=== PATIENT | female | born 1955 | race Hispanic/Latino ===

== ENCOUNTER 2017-05-29 11:35 | Observation (INO) | payer OTHER ==
--- NOTE | 2017-05-29 12:17 | ED PDOC ---
Arrival/HPI - General Chief Complaint: Abdominal Pain Time Seen by Provider: 05/29/17 11:36 Historian: Patient - History of Present Illness Narrative History of Present Illness (Text): 05/29/17 12:10 A 61 year old female, whose past medical history includes chronic back pain, morbid obesity, obstructive sleep apnea, COPD, Diabetes, HTN, HLD and anxiety, presents to the emergency department with more than 1 week duration chest pain and vomiting. The patient states that her symptoms worsened today. The patient denies fevers, chills, headache, dizziness, shortness of breath, dyspnea on exertion, cough, abdominal pain, diarrhea, back pain, neck pain, urinary/bowel changes, or any other complaint. PMD: Dr. Ring Time/Duration: > week Symptom Onset: Sudden Symptom Course: Unchanged Activities at Onset: Rest, Light Context: Home Past Medical History - Provider Review Nursing Documentation Reviewed: Yes - Infectious Disease Hx of Infectious Diseases: None - Tetanus Immunization Tetanus Immunization: Unknown - Reproductive Menopause: Yes - Cardiac Hx Cardiac Disorders: Yes Hx Hypertension: Yes - Pulmonary Hx Respiratory Disorders: Yes Hx Asthma: Yes Hx Chronic Obstructive Pulmonary Disease (COPD): Yes Hx Sleep Apnea: Yes - Neurological Hx Neurological Disorder: No - HEENT Hx HEENT Disorder: Yes - Renal Hx Renal Disorder: No - Endocrine/Metabolic Hx Endocrine Disorders: Yes Hx Diabetes Mellitus Type 1: Yes Hx Hyperthyroidism: Yes (GRAVES DISEASE ) Hx Hypothyroidism: Yes (PT ON SYNTHROID) - Hematological/Oncological Hx Blood Disorders: No - Integumentary Hx Dermatological Disorder: No - Musculoskeletal/Rheumatological Hx Musculoskeletal Disorders: Yes Hx Arthritis: Yes Hx Back Pain: Yes Hx Fractures: Yes Hx Osteoarthritis: Yes Other/Comment: FRACTURE RIGHT ANKLE/ HARDWARE IN ANKLE - Gastrointestinal Hx Gastrointestinal Disorders: Yes Hx Gastritis: Yes - Genitourinary/Gynecological Hx Genitourinary Disorders: No - Psychiatric Hx Psychophysiologic Disorder: Yes Hx Anxiety: Yes Hx Depression: Yes Hx Substance Use: No - Surgical History Hx Appendectomy: Yes Hx Cholecystectomy: Yes Hx Eye Surgery: Yes Hx Orthopedic Surgery: Yes Hx Tubal Ligation: Yes - Anesthesia Hx Anesthesia: Yes Hx Anesthesia Reactions: No Hx Malignant Hyperthermia: No - Suicidal Assessment Feels Threatened In Home Enviroment: No Family/Social History - Physician Review Nursing Documentation Reviewed: Yes Family/Social History: No Known Family HX Smoking Status: Former Smoker Hx Alcohol Use: No Hx Substance Use: No Hx Substance Use Treatment: No Allergies/Home Meds Allergies/Adverse Reactions: Allergies No Known Allergies Allergy (Verified 05/29/17 11:59) Home Medications: Home Meds Medication Instructions Recorded Confirmed Albuterol HFA [Ventolin HFA 90 200 puff IH DAILY 03/09/12 05/29/17 mcg/actuation (8 g)] Tiotropium [Spiriva] 18 mcg IH DAILY 03/09/12 05/29/17 Vitamin B Complex & Vitamin C 1 tab PO DAILY 03/09/12 05/29/17 [Strovite] Atenolol [Tenormin] 50 mg PO DAILY 05/06/16 05/29/17 Diazepam [Valium] 10 mg PO QID PRN 05/06/16 05/29/17 Hydrocodone/Acetaminophen [Vicodin 1 tab PO QID PRN 05/06/16 05/29/17 Es 7.5-300 mg Tablet] Gkark-6-Qtyp Ethyl Esters 1 GM 1 gm PO DAILY 05/06/16 05/29/17 [Lovaza] Oxycodone HCl [Oxycontin] 80 mg PO QID PRN 05/06/16 05/29/17 Zolpidem [Ambien] 10 mg PO HS 05/06/16 05/29/17 Albuterol HFA [Ventolin HFA 90 1 puff IH PRN PRN 04/27/17 05/29/17 mcg/actuation (8 g)] Famotidine [Pepcid] 40 mg PO DAILY 04/27/17 05/29/17 Levothyroxine [Synthroid] 112 mcg PO DAILY 04/27/17 05/29/17 Lisinopril [Prinivil] 5 mg PO DAILY 04/27/17 05/29/17 Loratadine [Claritin] 10 mg PO DAILY 04/27/17 05/29/17 Montelukast Sodium [Singulair] 10 mg PO DAILY 04/27/17 05/29/17 Pantoprazole Sodium [Protonix] 40 mg PO DAILY 04/27/17 05/29/17 Repaglinide [Prandin] 0.5 mg PO DAILY 04/27/17 05/29/17 Simvastatin [Zocor] 40 mg PO DAILY 04/27/17 05/29/17 Gabapentin [Neurontin] 300 mg PO TID 05/29/17 05/29/17 Review of Systems - Physician Review All systems were reviewed & negative as marked: Yes - Review of Systems Constitutional: absent: Fevers, Night Sweats ENT: absent: Sore Throat Respiratory: absent: SOB, Cough Cardiovascular: Chest Pain. absent: JEFFERY, Syncope Gastrointestinal: Vomiting. absent: Abdominal Pain, Stool Changes Genitourinary Female: absent: Urine Output Changes Musculoskeletal: absent: Neck Pain Neurological: absent: Headache Physical Exam Vital Signs Reviewed: Yes Vital Signs Temp Pulse Resp BP Pulse Ox 05/29/17 11:47 97.8 F 68 18 125/65 98 Temperature: Afebrile Blood Pressure: Normal Pulse: Regular Respiratory Rate: Normal Appearance: Positive for: Well-Appearing, Non-Toxic, Comfortable Pain Distress: None Mental Status: Positive for: Alert and Oriented X 3 - Systems Exam Head: Present: Atraumatic, Normocephalic Pupils: Present: PERRL Extroacular Muscles: Present: EOMI Conjunctiva: Present: Normal Mouth: Present: Moist Mucous Membranes Neck: Present: Normal Range of Motion Respiratory/Chest: Present: Clear to Auscultation, Good Air Exchange. No: Respiratory Distress, Accessory Muscle Use Cardiovascular: Present: Regular Rate and Rhythm, Normal S1, S2. No: Murmurs Abdomen: Present: Normal Bowel Sounds. No: Tenderness, Distention, Peritoneal Signs Back: Present: Normal Inspection Upper Extremity: Present: Normal Inspection. No: Cyanosis, Edema Lower Extremity: Present: Normal Inspection. No: Edema Neurological: Present: GCS=15, CN II-XII Intact, Speech Normal Skin: Present: Warm, Dry, Normal Color. No: Rashes Psychiatric: Present: Alert, Oriented x 3, Normal Insight, Normal Concentration Medical Decision Making ED Course and Treatment: 05/29/17 12:22 Impression: A 61 year old female presents to the emergency department with over a week duration chest pain and vomiting which worsened today. Plan: -- EKG -- Chest X-ray -- Labs -- Urinalysis -- Protonix -- Reassess and disposition Prior Visits: Notes and results from previous visits were reviewed. Patient was last seen in the emergency department on 04/08/2016. The patient was seen in the emergency department for left flank pain. Patient was discharged home and advised to follow up with her PMD. Progress Notes: EKG: Ordered, reviewed, and independently interpreted the EKG. Rate : 60 BPM Rhythm : NSR Interpretation : No ST- T wave changes. CHEST X-RAY Dictator : Keyla Mcdonald MD Report Date : 05/29/2017 12:54:40 IMPRESSION: Cardiomegaly. 05/29/17 15:[address] ring. requests admission with dr mcclain on consult. - Lab Interpretations Lab Results: 05/29/17 11:52 05/29/17 11:52 Lab Results 05/29/17 11:52: Sodium 140, Potassium 5.4 H, Chloride 102, Carbon Dioxide 28, Anion Gap 15, BUN 27 H, Creatinine 1.1, Est GFR ( Amer) > 60, Est GFR ( Non-Af Amer) 50, Random Glucose 104, Calcium 9.5, Magnesium 1.6 L, Total Bilirubin 0.7, AST 25, ALT 31, Alkaline Phosphatase 66, Lactate Dehydrogenase 538, Total Creatine Kinase 72, Troponin I < 0.01, Total Protein 8.1, Albumin 4.7 , Globulin 3.4, Albumin/Globulin Ratio 1.4, Lipase 81 05/29/17 11:52: PT 10.6, INR 0.96, APTT 30.7 05/29/17 11:52: WBC 7.4 D, RBC 4.57, Hgb 12.9, Hct 39.0, MCV 85.3, MCH 28.2, MCHC 33.1, RDW 13.5, Plt Count 283, MPV 10.1, Gran % 60.6, Lymph % (Auto) 29.8, [place] % (Auto) 6.9 H, Eos % (Auto) 2.2, Baso % (Auto) 0.5, Gran # 4.46, Lymph # 2.2, [place] # 0.5, Eos # 0.2, Baso # 0.04 I have reviewed the lab results: Yes - RAD Interpretation Radiology Orders: 05/29/17 12:04 CHEST PORTABLE [RAD] Stat - EKG Interpretation Interpreted by ED Physician: Yes Type: 12 lead EKG - Medication Orders Current Medication Orders: Discontinued Medications Aspirin (Aspirin) 325 mg PO STAT STA Stop: 05/29/17 14:17 Last Admin: 05/29/17 14:40 Dose: 325 mg Pantoprazole Sodium (Protonix Inj) 40 mg IVP STAT STA Stop: 05/29/17 12:06 Last Admin: 05/29/17 12:29 Dose: 40 mg IVP Administration Document 05/29/17 12:29 IT (Rec: 05/29/17 12:29 IT [id number]) Charges for Administration # of IVP Administrations 1 - Scribe Statement The provider has reviewed the documentation as recorded by the [place] Kenna Montero Provider Scribe Attestation: All medical record entries made by the Scribe were at my direction and personally dictated by me. I have reviewed the chart and agree that the record accurately reflects my personal performance of the history, physical exam, medical decision making, and the department course for this patient. I have also personally directed, reviewed, and agree with the discharge instructions and disposition. Disposition/Present on Arrival - Present on Arrival Any Indicators Present on Arrival: No History of DVT/PE: No History of Uncontrolled Diabetes: Yes Urinary Catheter: No History of Decub. Ulcer: No History Surgical Site Infection Following: None - Disposition Have Diagnosis and Disposition been Completed?: Yes Diagnosis: Chest pain Disposition: HOSPITALIZED Disposition Time: 15:34 Condition: STABLE
[2017-05-29 12:32] LABS: BASO # 0.04 K/mm3 (0.0-2.0); BASO % 0.5 % (0.0-3.0); EOS # 0.2 (0.0-0.7); EOS % 2.2 % (1.5-5.0); GRAN # 4.46 (1.4-6.5); GRAN % 60.6 % (50.0-68.0); LYMPH # 2.2 (1.2-3.4); LYMPH % 29.8 % (22.0-35.0); MEAN CELL VOLUME 85.3 fl (80.0-105.0); MEAN CORPUSCULAR HEMOGLOBIN 28.2 pg (25.0-35.0); MEAN CORPUSCULAR HGB CONC 33.1 g/dl (31.0-37.0); MEAN PLATELET VOLUME 10.1 fl (7.0-11.0); MONO # 0.5 (0.1-0.6); MONO % 6.9 % (1.0-6.0); RED CELL DISTRIBUTION WIDTH 13.5 % (11.5-14.5); WHITE BLOOD COUNT 7.4 10^3/ul (4.5-11.0)
[2017-05-29 12:38] LABS: ALB/GLOB RATIO 1.4 (1.1-1.8); ALKALINE PHOSPHATASE 66 U/L (38-126); ALT/SGPT 31 U/L (7-56); AST/SGOT 25 U/L (14-36); BILIRUBIN,TOTAL 0.7 mg/dL (0.2-1.3); BLOOD UREA NITROGEN 27 mg/dL (7-21); CALCIUM 9.5 mg/dL (8.4-10.5); CARBON DIOXIDE 28 mmol/L (21-33); CHLORIDE 102 mmol/L (98-107); GFR AFRICAN-AMERICAN > 60; GLUCOSE,RANDOM 104 mg/dL (70-110); LIPASE 81 U/L (23-300); MAGNESIUM 1.6 mg/dL (1.7-2.2); POTASSIUM 5.4 mmol/L (3.6-5.0); SODIUM 140 mmol/L (132-148); TOTAL PROTEIN 8.1 g/dL (5.8-8.3)
[2017-05-29 12:42] LABS: INR 0.96 (0.93-1.08); PARTIAL THROMBOPLASTIN TIME 30.7 Seconds (25.1-36.5)
[2017-05-29 12:53] LABS: TROPONIN I < 0.01 ng/mL
--- NOTE | 2017-05-29 12:56 | RAD ---
HISTORY: cp/abd pain COMPARISON: Chest x-ray performed 05/03/16 TECHNIQUE: Chest, one view. FINDINGS: Examination limited by habitus. LUNGS: No focal consolidation. Please note that chest x-ray has limited sensitivity for the detection of pulmonary masses. PLEURA: No significant pleural effusion identified. No definite pneumothorax . CARDIOVASCULAR: Cardiomegaly. OSSEOUS STRUCTURES: Degenerative changes of the spine. VISUALIZED UPPER ABDOMEN: Unremarkable. OTHER FINDINGS: None. IMPRESSION: Cardiomegaly.
[2017-05-29 15:49] LABS: URINE BILIRUBIN NEGATIVE (NEGATIVE); URINE BLOOD NEGATIVE (NEGATIVE); URINE GLUCOSE (UA) NEGATIVE (NEGATIVE); URINE KETONE NEGATIVE (NEGATIVE); URINE LEUKOCYTE ESTERASE MODERATE Leu/uL (NEGATIVE); URINE PROTEIN NEGATIVE mg/dL (<30 mg/dL); URINE UROBILINOGEN 0.2 E.U./dL (<1 E.U./dL)
[2017-05-29 15:50] LABS: URINE COLOR LIGHT YELLOW (YELLOW)
[2017-05-29 16:24] LABS: URINE BACTERIA FEW (NEG); URINE EPITHELIAL CELLS 0 - 2 /hpf (0-5); URINE RBC NEGATIVE /hpf (0-2)
[2017-05-29 16:25] LABS: URINE APPEARANCE CLEAR (CLEAR)
[2017-05-29] MEDS: Insulin Reg-LOW-Coverage SC SCH ×2 (17:59→23:04)
[2017-05-29] MEDS ORDERED: DIAZEPAM 10 MG PO PRN (18:00)
[2017-05-29] MEDS ORDERED: HYDROCODONE PO PRN (18:01)
[2017-05-29] MEDS ORDERED: [UNRECOGNIZED DRUG - OTHER] PO PRN (18:01)
[2017-05-29] MEDS ORDERED: ACETAMINOPHEN PO PRN (18:01)
[2017-05-29] MEDS: Enoxaparin 40 mg Syringe SC SCH (18:08)
[2017-05-29 18:34] VITALS: BMI 39.6
[2017-05-29] MEDS ORDERED: Pneumococcal 23-Valent Vaccine IM ONE (18:46)
[2017-05-29] MEDS ORDERED: Influenza Vaccine 60 mcg/0.5 mL SYR (4YR UP) IM ONE (18:46)
[2017-05-29] MEDS: Albuterol-Ipratrop 3 mg / 0.5 (3 ml) UD IH SCH (19:05)
[2017-05-29 19:19] LABS: TROPONIN I < 0.01 ng/mL
[2017-05-29] MEDS: oxyCODONE 80 mg ER Tab (oxyCONTIN) PO SCH (21:21)
[2017-05-29] MEDS ORDERED: Albuterol-Ipratrop 3 mg / 0.5 (3 ml) UD IH PRN (22:00)
[2017-05-30 07:11] LABS: ALB/GLOB RATIO 1.3 (1.1-1.8); ALKALINE PHOSPHATASE 52 U/L (38-126); ALT/SGPT 22 U/L (7-56); AST/SGOT 21 U/L (14-36); BILIRUBIN,TOTAL 0.6 mg/dL (0.2-1.3); BLOOD UREA NITROGEN 27 mg/dL (7-21); CALCIUM 9.3 mg/dL (8.4-10.5); CARBON DIOXIDE 24 mmol/L (21-33); CHLORIDE 107 mmol/L (98-107); CHOLESTEROL 122 mg/dL (130-200); GFR AFRICAN-AMERICAN > 60; GLUCOSE,RANDOM 105 mg/dL (70-110); MAGNESIUM 1.7 mg/dL (1.7-2.2); PHOSPHOROUS 4.9 mg/dL (2.5-4.5); POTASSIUM 4.8 mmol/L (3.6-5.0); SODIUM 140 mmol/L (132-148); TOTAL PROTEIN 6.9 g/dL (5.8-8.3)
[2017-05-30 07:12] LABS: BASO # 0.03 K/mm3 (0.0-2.0); BASO % 0.5 % (0.0-3.0); EOS # 0.2 (0.0-0.7); EOS % 3.1 % (1.5-5.0); GRAN # 2.53 (1.4-6.5); GRAN % 45.7 % (50.0-68.0); HEMATOCRIT 34.6 % (36.0-48.0); LYMPH # 2.3 (1.2-3.4); LYMPH % 41.3 % (22.0-35.0); MEAN CORPUSCULAR HEMOGLOBIN 27.8 pg (25.0-35.0); MEAN CORPUSCULAR HGB CONC 32.7 g/dl (31.0-37.0); MEAN PLATELET VOLUME 10.3 fl (7.0-11.0); MONO # 0.5 (0.1-0.6); MONO % 9.4 % (1.0-6.0); RED CELL DISTRIBUTION WIDTH 13.4 % (11.5-14.5); WHITE BLOOD COUNT 5.5 10^3/ul (4.5-11.0)
[2017-05-30 07:25] LABS: TROPONIN I < 0.01 ng/mL
[2017-05-30] MEDS: Albuterol-Ipratrop 3 mg / 0.5 (3 ml) UD IH SCH ×2 (08:00→21:40)
[2017-05-30] MEDS: Insulin Reg-LOW-Coverage SC SCH ×3 (08:57→17:39)
[2017-05-30] MEDS: oxyCODONE 80 mg ER Tab (oxyCONTIN) PO SCH ×4 (09:08→22:35)
[2017-05-30] MEDS: Omega-3-Acid Ethyl Esters 1 GM Cap PO SCH (09:09)
[2017-05-30] MEDS: Levothyroxine 112 MCG TAB PO SCH (09:09)
[2017-05-30] MEDS: Enoxaparin 40 mg Syringe SC SCH (09:10)
[2017-05-30] MEDS: Pantoprazole 40 mg EC Tab PO SCH (09:10)
[2017-05-30] MEDS ORDERED: Non Formulary Medication (Simvastatin [Zocor] 40 MG) PO SCH (10:00)
--- NOTE | 2017-05-30 10:14 | CARD ---
APPROVED REPORT EKG Measurement Heart [id number] <Conclusion> Normal sinus rhythm Left axis deviation Abnormal ECG
--- NOTE | 2017-05-30 11:46 | CARD ---
APPROVED REPORT EXAM: Two-dimensional and M-mode echocardiogram with Doppler and color Doppler. INDICATION Chest Pain LVFX 2D DIMENSIONS Left Atrium (2D)4.2 (1.6-4.0cm)IVSd1.2 (0.7-1.1cm) LVDd4.4 (3.9-5.9cm)PWd1.3 (0.7-1.1cm) LVDs2.9 (2.5-4.0cm)FS (%) 35.6 % LVEF (%)65.3 (>50%) M-Mode DIMENSIONS Aortic Root3.10 (2.2-3.7cm)Aortic Cusp Exc.2.30 (1.5-2.0cm) Aortic Valve AoV Peak Qfmymeow934.0cm/Katy Peak GR.13mmHg Mitral Valve MV E Ypubclph78.4cm/sMV A Wskrnncg46.8cm/sE/A ratio0.9 TDI Lateral E' Peak V11.60cm/sMedial E' Peak V7.70cm/sE/Lateral E'7.6 E/Medial E'11.5 Pulmonary Valve PV Peak Zokvbdyw08.3cm/sPV Peak Grad.4mmHg Tricuspid Valve TR Peak Icfadzyi961gt/sRAP [id number] Peak Gr.11mmHg [id number] LEFT VENTRICLE The left ventricle is normal size. There is borderline to mild concentric left ventricular hypertrophy. The left ventricular function is normal.EF-65% There is normal LV segmental wall motion. Transmitral Doppler flow pattern is Grade III-reversible restrictive diastolic dysfunction. No left ventricle thrombus noted on this study. There is no ventricular septal defect visualized. There is no left ventricular aneurysm. There is no mass noted in the left ventricle. RIGHT VENTRICLE The right ventricle is normal size. There is normal right ventricular wall thickness. The right ventricular systolic function is normal. ATRIA The left atrium is mildly dilated. The right atrium size is normal. The interatrial septum is intact with no evidence for an atrial septal defect. AORTIC VALVE The aortic valve is thickened but opens well. The aortic valve is mildly sclerotic. There is trace aortic regurgitation. There is no aortic valvular stenosis. There is no aortic valvular vegetation. MITRAL VALVE The mitral valve is thickened but opens well. Mitral regurgitation is trace. There is no mitral valve stenosis. There is no evidence of mitral valve prolapse. TRICUSPID VALVE The tricuspid valve leaflets are thickened , but open well. There is trace tricuspid regurgitation.RVSP-21 mm of Hg. There is no tricuspid valve stenosis. There is no tricuspid valve prolapse or vegetation. PULMONIC VALVE The pulmonic valve is borderline thickened. There is trace pulmonic valvular regurgitation. There is no pulmonic valvular stenosis. GREAT VESSELS The aortic root is normal in size. The ascending aorta is normal in size. The pulmonary artery is normal. The IVC is normal in size and collapses >50% with inspiration. PERICARDIAL EFFUSION There is no pleural effusion. There is no pericardial effusion. <Conclusion> The left ventricle is normal size. There is borderline to mild concentric left ventricular hypertrophy. The left ventricular function is normal.EF-65% There is trace aortic regurgitation. Mitral regurgitation is trace. There is trace tricuspid regurgitation.RVSP-21 mm of Hg. There is no pericardial effusion.
--- NOTE | 2017-05-30 13:31 | PN ---
DATE: 05/30/2017 REASON FOR CONSULTATION: Chest pain, cardiac evaluation, history of back pain, narcotic abuse. SUBJECTIVE: The patient denies any chest pain, shortness of breath, or any palpitation, having echo at bedside. PHYSICAL EXAMINATION GENERAL: Not in apparent distress. Family is at bedside. VITAL SIGNS: Temperature afebrile, heart rate 64, blood pressure 124/60. HEENT: PERRLA. Extraocular muscles are intact. NECK: Supple. No carotid bruit or thyromegaly. CHEST: Clear to auscultation. HEART: S1 and S2 regular. ABDOMEN: Soft. EXTREMITIES: Clubbing and cyanosis negative. LABORATORY DATA: WBC 5.5, hemoglobin 11.7, hematocrit 34.6, platelet count 217. Chemistry shows sodium 140, potassium 4.0, chloride 107, carbon dioxide 24, anion gap of 14, BUN 27, creatinine 1.1. TSH is 0.36. Triglyceride 216, cholesterol 122, LDL 54, HDL 42. IMPRESSION: Chest pain, atypical. No evidence of acute myocardial infarction. No evidence of acute coronary syndrome, diabetes, hypertension, hyperlipidemia, morbid obesity, narcotic abuse. RECOMMENDATIONS: We will get echo today. Consider stress test as outpatient because of multiple risk factors for coronary artery disease. We will discontinue telemetry. Patient remains stable due to stress test Thursday or otherwise as outpatient. Thank you Dr. Ortiz for providing us the opportunity in taking care of the patient. Jignesh Hamlin MD
[2017-05-30] MEDS: Lidocaine 5% Patch TD SCH (23:06)
[2017-05-31 05:15] VITALS: RESP 20
[2017-05-31] MEDS ORDERED: Oxycodone/Acetaminophen 5/325 mg Tab PO STA (07:11)
[2017-05-31] MEDS: Albuterol-Ipratrop 3 mg / 0.5 (3 ml) UD IH SCH ×2 (07:43→11:08)
[2017-05-31] MEDS: Insulin Reg-LOW-Coverage SC SCH (08:17)
[2017-05-31 08:23] VITALS: TEMP 98; O2SAT 99
[2017-05-31] MEDS: Pantoprazole 40 mg EC Tab PO SCH (09:45)
[2017-05-31] MEDS: Omega-3-Acid Ethyl Esters 1 GM Cap PO SCH (09:45)
[2017-05-31] MEDS: Levothyroxine 112 MCG TAB PO SCH (09:46)
[2017-05-31] MEDS: oxyCODONE 80 mg ER Tab (oxyCONTIN) PO SCH (09:46)
[2017-05-31 09:52] VITALS: BP 118/54; PULSE 75
[2017-05-31] MEDS: Lidocaine 5% Patch TD SCH (09:52)
[2017-05-31] MEDS: Enoxaparin 40 mg Syringe SC SCH (09:53)
--- NOTE | 2017-05-31 16:38 | PN ---
DATE: 05/31/2017 REASON FOR CONSULTATION AND FOLLOWUP: Chest pain, cardiac evaluation, history of back pain, narcotic abuse. SUBJECTIVE: The patient denies any chest pain, shortness of breath, or any palpitation, so far no evidence of acute MA. OBJECTIVE: Sitting at the bedside comfortable, not in apparent distress. PHYSICAL EXAMINATION: VITAL SIGNS: Temperature afebrile, heart rate 75, blood pressure 118/54. HEENT: PERRLA intact. NECK: Supple. No carotid bruit or thyromegaly. CHEST: Clear to auscultation. HEART: S1 and S2 regular. ABDOMEN: Soft. EXTREMITIES: Clubbing and cyanosis negative. LABORATORY DATA: Blood workup as follows: WBC 5.5, hemoglobin 11.3, hematocrit 34.6, platelet count 217. Chemistry shows sodium 140, potassium 4.0, chloride 107, carbon dioxide 24, anion gap of 14, BUN 27, creatinine 1.1. Triglyceride 215, cholesterol 122, LDL 54, HDL 42. TSH is 1.36. IMPRESSION: Chest pain, atypical, so far no evidence of acute myocardial infarction. The patient had echocardiography done yesterday that showed ejection fraction 65%, trace aortic regurgitation, trace mitral regurgitation, trace tricuspid regurgitation, RV systolic pressure of 27; no evidence of acute myocardial infarction; history of narcotic abuse; history of back pain. RECOMMENDATIONS: Continue current medication. Continue DVT prophylaxis. We will do stress test as outpatient. Discussed with the patient. We will schedule stress test as outpatient because of multiple risk factors for coronary artery disease. Thank you for providing us the opportunity in taking care of the patient. Jignesh Hamlin MD
--- NOTE | 2017-06-01 01:39 | PN ---
DATE: 05/30/2017 SUBJECTIVE: Hui Whalen is a 61-year-old female, admitted to telemetry. The patient seems better, feels better, less short of breath. No chest pain. She is comfortable and her blood work came back normal. She is afebrile. She has no other complaints. No cough. No nausea. No vomiting. No cardiac arrhythmia. No palpitations. PHYSICAL EXAMINATION: VITAL SIGNS: As follows: Temperature 97.8, heart rate 72, blood pressure 112/53, and respirations 18. HEAD AND NECK: Normal. No JVD. No thyromegaly. CHEST: Clear. Good air entry. CARDIAC: First sound and second sound normal. ABDOMEN: Soft, obese, and nontender. EXTREMITIES: No edema. NEUROLOGIC: Normal. LABORATORY DATA: As follows: White count 5.5, hemoglobin 11.3, hematocrit 34.6, and platelets 217. Chemistry noted for blood sugar of 102, sodium 140, potassium 4.8, chloride 107, bicarb 24, BUN 27, and creatinine 1.1. Liver function test is normal. Her troponin x3 was negative. The patient also noted for LDL 54, which is very well controlled cholesterol. Triglyceride was elevated at 216. IMPRESSION AND PLAN: 1. Chest pain, atypical. Cardiac enzymes x2 is negative and repeat one more and she would be discharged if it is negative. She will be discharged home tomorrow. Reschedule a stress test as an outpatient. Follow up with Cardiology, Dr. Hamlin. 2. Hypertension. 3. Morbid obesity. 4. Obstructive sleep apnea. 5. Diabetes. 6. Hypercholesteremia. Continue current medicines and follow up clinically. 7. Chronic back pain. Continue OxyContin. Continue Vicodin. Continue Valium for now. Follow up clinically. The patient is using BiPAP machine, tolerated very well and we will continue current therapy. If she is stable and cardiac enzymes are negative, we will discharge the patient in the morning. Roel Ortiz MD
--- NOTE | 2017-06-01 08:20 | HP ---
REASON FOR ADMISSION: Chest pain. HISTORY OF PRESENT ILLNESS: A 61-year-old female with history diabetes, hypertension, high cholesterol, chronic back pain, depression, anxiety, chronic osteoarthritis, came in with chest pain, heaviness in the chest associated with shortness of breath. This has been intermittently; however, on that day it stayed like more than half an hour, came to the ER and the pain seems resolved. She does associate with the pain nausea, she felt little bit sweaty. There was no other complaints. She does have a history of COPD, but there was no wheezing with that and no other . No fever. No chills. No vomiting. PAST MEDICAL HISTORY: As I mentioned before, hypertension, diabetes, hyperthyroidism, exophthalmos from hyperthyroidism, COPD, high cholesterol, diverticulosis, and diabetes type 2 using medications, and chronic osteoarthritis, back pain, knee arthritis. ALLERGIES: NO KNOWN ALLERGIES. FAMILY HISTORY: Noncontributory. SOCIAL HISTORY: She does not smoke or drink. She lives with her daughter. REVIEW OF SYSTEMS: As I mentioned, back pain, knee pain, incontinent, shortness of breath, wheezing sometimes, anxiety, insomnia. HOME MEDICATIONS: The patient takes a lot of medication. She takes Protonix 40 mg, Ambien 10, Prandin 0.5 mg t.i.d., vitamin C, Zocor 40. She takes omega-3, prednisone 5 mg, Pepcid 40 mg, Tenormin 50 mg, levothyroxine 112 mcg, Vicodin 7.5/300 mg, albuterol nebulizers, Spiriva, OxyContin 80 mg 4 times a day, Claritin 10 mg daily, Neurontin 300 mg p.o. t.i.d., and Valium 10 mg 4 times a day. PHYSICAL EXAMINATION: GENERAL: Since she came in, the patient seen on the floor, she is comfortable. She has no distress. VITAL SIGNS: Temperature 98, heart rate 62, blood pressure 128/65, respirations 19, saturation 99% and FiO2 30%. The patient also refused BiPAP at night HEAD/NECK: Normal except for exophthalmos both eyes. CHEST: Clear. Good air entry. CARDIAC: First sound and second sound is normal. ABDOMEN: Soft, obese, and nontender. EXTREMITIES: No edema. NEUROLOGIC: Exam is normal. LABORATORY DATA: White count 7.4, hemoglobin 12.9, hematocrit 39, platelets 283. Chemistry was noted for sodium 140, potassium 5.4, chloride 102, bicarb 28, BUN 27, creatinine 1.1. Liver function test is normal. Magnesium is low at 1.6. She also has troponin x2 and it was negative. The patient also had an EKG and chest x-ray, which was done on admission. Chest x-ray was read as no focal consolidation on the chest. No pleural effusions. No pneumothorax. Also EKG was done while she came in and was reported by ER as no significant ST elevations. No evidence of myocardial infarctions. No atrial fibrillations. IMPRESSION AND PLAN: 1. A 61-year-old female with multiple risk factors, diabetes, hypertension, high cholesterol, obesity, on multiple medications. She came in also with obstructive sleep apnea, on multiple medications, came in with chest heaviness for half an hour or more. The patient will be admitted to Telemetry, cardiac monitoring, cardiac enzymes x3, Cardiology evaluation and consultation and continue oral medications, baby aspirin and we will follow up clinically. 2. Chronic back pain. 3. Chronic obstructive pulmonary disease. 4. Hypertension. 5.. Hypercholesterolemia. We will resume her medications. 6. Obstructive sleep apnea, with BiPAP machine. 7. Deep venous thrombosis prophylaxis, Lovenox. 8. Gastroenterology prophylaxis, Protonix. Continue current therapy. Roel Ortiz MD
--- NOTE | 2017-06-01 08:45 | PN ---
DATE: 05/29/2017 REASON FOR CONSULTATION AND FOLLOWUP: Cardiac evaluation, chest pain, possible OxyContin withdrawal. BRIEF CLINICAL HISTORY: A 61-year-old female with past medical history significant for morbid obesity, chronic back pain, OxyContin, obstructive sleep apnea, COPD, diabetes, hypertension, hyperlipidemia, anxiety disorder, came to the emergency room one week duration, complained of pain, vomiting because the patient threw by mistake OxyContin, she was taking 90 mg 3 times a day, but she threw it to the thrash, and did not get adequate supplement, so the patient has withdrawal, so came in here. Also, complained of epigastric pain, so came to the emergency room and got admitted for rule out PA. The patient denies any chest pain. Daughter is at the bedside. PAST MEDICAL HISTORY: Significant for chronic back pain, obesity, COPD, diabetes, hypertension, hyperlipidemia and anxiety disorder. SOCIAL HISTORY: She quit smoking 4 years ago. She denies any history of alcohol abuse. CURRENT MEDICATIONS: The patient at home was taking Protonix, Ambien, Prandin, B complex, Zocor, Prinivil, Pepcid, atenolol, levothyroxine, hydrocortisone, Vicodin, DuoNeb nebulizer treatment, Spiriva, OxyContin 90 mg 3 times a day, Singulair, loratadine, gabapentin, Cardizem, diazepam, and Valium. ALLERGIES: NO KNOWN DRUG ALLERGIES. REVIEW OF SYSTEMS: As per HPI. PHYSICAL EXAMINATION: As follows: VITAL SIGNS: Height of the patient is 5 feet 6 inches and weight of the patient is 251 pounds, body mass index 40 kg/m2. HEENT: , rule out hypothyroidism or goiter. NECK: Supple. No carotid bruits or thyromegaly. CHEST: Clear to auscultation. HEART: S1 and S2 regular. ABDOMEN: Soft. Epigastric tenderness. EXTREMITIES: Clubbing and cyanosis, negative. LABORATORY DATA: EKG shows normal sinus rhythm,left axis deviation with acute ST-T changes noted. WBC 7.1, hemoglobin 12.9, hematocrit 39.0, platelet count 283. Chemistries shows sodium 140, potassium 5.4, chloride 102, carbon dioxide 28, anion gap of 15, BUN 27, creatinine 1.1, troponin 0.01, negative. IMPRESSION: Atypical chest pain. Given the multiple risk factors for coronary artery disease, suggest to rule out myocardial infarction, possibly most likely these symptoms are secondary to OxyContin withdrawal that the patient lost medication. History of hypothyroid, history of hypertension, hyperlipidemia. Recommend to follow up CPK, troponin, supplement magnesium. The patient has hypomagnesemia, serial CPK, troponin, echo to assess left ventricular function, lipid profile, TSH. If negative, possible discharge home tomorrow and schedule her stress test as outpatient. We will get a stat lipid profile, TSH, hemoglobin A1c in the morning as well as echo to assess LV function. Thank you , for providing us the opportunity in taking care of patient, Hui Whalen. Jignesh Hamlin MD cc:
--- NOTE | 2017-06-01 13:10 | DS ---
HISTORY OF PRESENT ILLNESS: The patient is a 61-year-old female with multiple risk factors including diabetes, hypertension, hypercholesterolemia, morbid obesity, obstructive sleep apnea, hypertriglyceridemia, chronic back pain, chronic osteoarthritis. The patient came into the hospital with chest pain, atypical. Her cardiac enzyme x3 were negative. The patient was seen by Cardiology. Echocardiogram shows good LV functions. EKG shows no ST elevation sinus rhythm. The patient was evaluated, was stable hemodynamically. Labs were negative and was in normal range and was discharged to be followed as outpatient. PHYSICAL EXAMINATION: VITAL SIGNS: Stable, temperature 98, heart rate 67, blood pressure 116/47, respirations 20, sat 98%. HEAD AND NECK: Normal. No JVD. CHEST: Clear. CARDIAC: Normal. ABDOMEN: Obese. EXTREMITIES: No edema. DISCHARGE DIAGNOSES: 1. Chest pain atypical. The patient will be scheduled for stress test as outpatient. 2. Morbid obesity. 3. Hypertension. 4. Diabetes. 5. Obstructive sleep apnea. 6. Hypercholesterolemia. 7. Chronic back pain. 8. Chronic anxiety. 9. Hyperthyroidism treated with thyroidectomy and radioactive iodine, currently on levothyroxine. 10. Morbid obesity. 11. Chronic osteoarthritis. 12. Chronic back pain. PLAN: The patient will be discharged home to follow up in the office within a week. Roel Ortiz MD
== END 2017-05-31 11:35 | disposition home or self-care (01) ==
LOC: ED 11:35 → INTOOBSV 14:13 → ERH 14:13 → 2RNO 16:27 → 5RSO 05-30 16:33
PROVIDERS: ADMIT Internal Medicine; ATTEND Internal Medicine
DX: R07.89 Other chest pain (principal); I11.9 Hypertensive heart disease without heart failure; J44.9 Chronic obstructive pulmonary disease, unspecified; E11.9 Type 2 diabetes mellitus without complications; G89.29 Other chronic pain; G47.33 Obstructive sleep apnea (adult) (pediatric); F41.9 Anxiety disorder, unspecified; E66.01 Morbid (severe) obesity due to excess calories; M54.9 Dorsalgia, unspecified; E78.00 Pure hypercholesterolemia, unspecified; R11.2 Nausea with vomiting, unspecified; E05.90 Thyrotoxicosis, unspecified without thyrotoxic crisis or storm; E83.42 Hypomagnesemia; M17.10 Unilateral primary osteoarthritis, unspecified knee; E78.1 Pure hyperglyceridemia; Z87.891 Personal history of nicotine dependence
CPT/HCPCS: 36415; 71010; 80053; 80061; 81001; 82550; 82948; 83036; 83615; 83690; 83735; 84100; 84443; 84484; 85025; 85610; 85730; 87086; 93005; 93306; 94640; 94660; 96374; 99285; C9113; G0378; J1650

== ENCOUNTER 2017-08-31 19:37 | Observation (INO) | payer OTHER ==
[2017-08-31] MEDS ORDERED: Sodium Chloride 0.9% 1,000 ML IV STA (20:53)
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
[2017-08-31 22:56] LABS: VENOUS BLOOD GAS BASE EXCESS -1.9 mmol/L (0.0-2.0); VENOUS BLOOD GAS PO2 38 mm/Hg (30-55); VENOUS BLOOD PH 7.21 (7.32-7.43)
[2017-08-31 23:12] LABS: BASO # 0.04 K/mm3 (0.0-2.0); BASO % 0.5 % (0.0-3.0); EOS # 0.2 (0.0-0.7); GRAN # 5.36 (1.4-6.5); HEMOGLOBIN 11.9 g/dL (12.0-16.0); MEAN CELL VOLUME 85.8 fl (80.0-105.0); MEAN CORPUSCULAR HEMOGLOBIN 27.7 pg (25.0-35.0); MEAN CORPUSCULAR HGB CONC 32.3 g/dl (31.0-37.0); MEAN PLATELET VOLUME 10.2 fl (7.0-11.0); MONO # 0.4 (0.1-0.6); MONO % 5.5 % (1.0-6.0); RBC 4.29 10^6/uL (3.5-6.1); RED CELL DISTRIBUTION WIDTH 13.8 % (11.5-14.5)
[2017-08-31] MEDS ORDERED: cefTRIAXone (Rocephin) 1 gm Inj IVPB STA (23:14)
[2017-08-31] MEDS ORDERED: Azithromycin 500MG/NS 250ml 500 MG/250 ML BAG IVPB STA (23:14)
[2017-08-31] MEDS ORDERED: cefTRIAXone 1 GM/100 ML BAG IVPB STA (23:20)
[2017-08-31 23:21] LABS: ALB/GLOB RATIO 1.5 (1.1-1.8); ALBUMIN 4.2 g/dL (3.0-4.8); ALT/SGPT 119 U/L (7-56); AST/SGOT 152 U/L (14-36); BLOOD UREA NITROGEN 27 mg/dL (7-21); CALCIUM 9.6 mg/dL (8.4-10.5); GFR AFRICAN-AMERICAN 50; GFR NON-AFRICAN AMERICAN 42; LIPASE 80 U/L (23-300); MAGNESIUM 1.5 mg/dL (1.7-2.2); TROPONIN I < 0.01 ng/mL
[2017-08-31] MEDS ORDERED: Morphine 4 mg/ml ISec IVP STA (23:25)
[2017-08-31] MEDS ORDERED: Dextrose 50% SYRINGE Inj (50 ml) IVP STA (23:26)
[2017-08-31] MEDS ORDERED: Insulin Regular 1 UNITS/0.01 ML ML IV STA (23:26)
[2017-08-31] MEDS ORDERED: Sodium Bicarbonate (8.4%) 50 Meq Syringe IVP STA (23:27)
[2017-08-31 23:28] LABS: PH,URINE 5.5 (4.7-8.0); URINE BILIRUBIN NEGATIVE (NEGATIVE); URINE BLOOD NEGATIVE (NEGATIVE); URINE GLUCOSE (UA) NEGATIVE (NEGATIVE); URINE LEUKOCYTE ESTERASE LARGE Leu/uL (NEGATIVE); URINE NITRATE NEGATIVE (NEGATIVE); URINE PROTEIN NEGATIVE mg/dL (<30 mg/dL); URINE UROBILINOGEN 0.2 E.U./dL (<1 E.U./dL)
[2017-08-31 23:45] LABS: URINE APPEARANCE SL CLOUDY (CLEAR); URINE COLOR YELLOW (YELLOW)
[2017-08-31 23:47] LABS: URINE EPITHELIAL CELLS 0 - 2 /hpf (0-5); URINE RBC 0 - 2 /hpf (0-2)
[2017-08-31 23:48] LABS: URINE BACTERIA MOD (NEG)
[2017-09-01] MEDS: oxyCODONE 20 mg ER Tab (oxyCONTIN) PO SCH ×2 (02:39→09:14)
[2017-09-01 03:15] VITALS: BMI 41.8
[2017-09-01] MEDS ORDERED: Pneumococcal 23-Valent Vaccine IM ONE (03:15)
[2017-09-01] MEDS ORDERED: Influenza Vaccine 60 mcg/0.5 mL SYR (4YR UP) IM ONE (03:15)
[2017-09-01] MEDS: Oxycodone/Acetaminophen 5/325 mg Tab PO PRN ×2 (06:19→22:26)
[2017-09-01] MEDS: Albuterol-Ipratrop 3 mg / 0.5 (3 ml) UD IH SCH ×4 (07:30→20:04)
[2017-09-01] MEDS ORDERED: DIAZEPAM 10 MG PO PRN (07:47)
[2017-09-01] MEDS ORDERED: Albuterol HFA 90 mcg/actuation (8 g) IH PRN (07:47)
--- NOTE | 2017-09-01 08:47 | RAD ---
HISTORY: dizziness COMPARISON: 05/29/2017 FINDINGS: LUNGS: No active pulmonary disease. PLEURA: No significant pleural effusion identified, no pneumothorax apparent. CARDIOVASCULAR: Normal. OSSEOUS STRUCTURES: No significant abnormalities. VISUALIZED UPPER ABDOMEN: Normal. OTHER FINDINGS: None. IMPRESSION: No active disease.
[2017-09-01] MEDS ORDERED: Sod Polystyrene Sulf 15 gm/60 ml Susp PO ONE (09:04)
[2017-09-01] MEDS: Insulin Lispro (humaLOG) LOW Coverage SC SCH ×4 (09:12→22:32)
[2017-09-01] MEDS: Fluticasone Nasal 50 mcg/Spray NS SCH (09:12)
[2017-09-01] MEDS: Omega-3-Acid Ethyl Esters 1 GM Cap PO SCH (09:13)
[2017-09-01] MEDS: Pantoprazole 40 mg EC Tab PO SCH (09:15)
[2017-09-01] MEDS ORDERED: Sodium Chloride 0.9% 1,000 ML IV SCH (09:15)
[2017-09-01] MEDS: Levothyroxine 112 MCG TAB PO SCH (09:15)
[2017-09-01] MEDS ORDERED: Albuterol 0.083% Inhal Sol (2.5 mg/3 mL) UD INH PRN (12:46)
[2017-09-01] MEDS: cefTRIAXone 1 gm 1 GM/100 ML BAG IVPB SCH (13:05)
[2017-09-01] MEDS: Sodium Chloride 0.45% 1,000 ML IV SCH (13:08)
--- NOTE | 2017-09-01 16:57 | US ---
PROCEDURE: Ultrasound of the Kidneys HISTORY: ckd COMPARISON: None available. TECHNIQUE: Sonogram of the kidneys. FINDINGS: RIGHT KIDNEY: Measures: 12.2 cm. Partial duplication of collecting system. Normal cortical thickness and echogenicity. No stone, solid mass lesion or hydronephrosis visualized. LEFT KIDNEY: Measures: 12.3 cm. Normal in size, contour and echogenicity. Upper pole cortical cyst, 6 x 6 x 7 mm. No other renal mass. No calculus or hydronephrosis. OTHER FINDINGS: None. IMPRESSION: Partially duplicated right renal collecting system. 7 mm left upper pole renal cortical cyst. Otherwise unremarkable.
--- NOTE | 2017-09-01 17:02 | US ---
PROCEDURE: Ultrasound of urinary bladder HISTORY: urinary retention, check post void residual COMPARISON: Not available TECHNIQUE: Transabdominal FINDINGS: The distended urinary bladder measures 354 cc. The wall is smooth and thin. There is no intraluminal mass. Bilateral ureteral jets are demonstrated. Postvoid residual in the urinary bladder is 55.8 cc. IMPRESSION: 55.8 cc postvoid residual.
[2017-09-01 17:06] VITALS: RESP 18
[2017-09-01] MEDS: oxyCODONE 80 mg ER Tab (oxyCONTIN) PO SCH (22:10)
--- NOTE | 2017-09-01 23:05 | CON ---
DATE: NEPHROLOGY CONSULTATION HISTORY OF PRESENT ILLNESS: A 61-year-old female with past medical history of Graves disease, COPD, hypertension, VERA, morbid obesity, diabetes, presented to ED yesterday after having feeling of dizziness and also with vomiting; found to have acute kidney injury and hyperkalemia for which nephrology is being consulted. The patient reports being in her usual state of health until sometime yesterday when she started feeling faint; had several episodes of vomiting; reports that earlier that day she took ibuprofen for her chronic pain affecting her legs; otherwise, the patient is on high dose of oxycodone and Vicodin. The patient denies any diarrhea; had been eating well up until that time. The patient does report urinating frequently about three to four times per night which she attributes to drinking a lot of water. Per medical record, she was having urinary retention yesterday. Reports having neuropathy, reportedly told she has glaucoma, denies having diabetic retinopathy. FAMILY HISTORY: Daughter with thyroid cancer. SOCIAL HISTORY: Previous smoker. REVIEW OF SYSTEMS: CONSTITUTIONAL: Appetite had been well up until recently. No weight loss. HEENT: Denies any change in vision lately. Has been having increased mucus production that she attributes to her COPD. RESPIRATORY: Has dyspnea on ambulating short distances with her cane or a walker; unchanged. CARDIOVASCULAR: Rarely gets palpitations. No chest pains. Denies swelling in legs. GI: As per HPI. : As per HPI. MUSCULOSKELETAL: Gets bilateral leg pains, bilateral knee arthritis. PSYCHIATRIC: History of anxiety. SKIN: History of skin cancer affecting her skin on nose. Has been getting rashes under her breasts and lower abdominal wall. PHYSICAL EXAMINATION: VITAL SIGNS: Blood pressure this morning 147/67, heart rate 65, respirations 19, temperature 97.1, O2 sat 98% on room air. GENERAL: No distress. Conversing coherently in full sentences without any supplemental oxygen. HEENT: Moist mucous membranes. Nonicteric. RESPIRATORY: Lungs clear to auscultation bilaterally. No rales, no rhonchi, no wheezes. CARDIOVASCULAR: Heart sounds S1, S2 normal. No murmurs, no gallops, no rubs. GI: Abdomen soft, nontender, nondistended. : No obvious bladder distention. EXTREMITIES: No lower leg edema. NEUROLOGIC: No tremor of outstretched hands. No numbness of feet. SKIN: Warm. No cyanosis. Labs from late last night; CBC, WBC 8.0, hemoglobin 11.9, hematocrit 36.8, platelets 278. Chemistry panel; sodium 144, potassium 5.5, chloride 107, bicarb 26, BUN 27, creatinine 1.3, glucose 96, calcium 9.6, phosphorus 5.0, magnesium 1.5, albumin 4.2. Urine studies; UA negative for protein, negative for glucose, trace ketones, large leukocyte esterase, WBC 10-15 per high-powered field. Urine culture still pending. Chest x-ray from admission; no pulmonary vascular congestion. ASSESSMENT AND PLAN: 1. Acute kidney injury relatively mild with serum creatinine increasing from baseline of 0.7 in 04/2016 to 1.3 currently; unclear whether this is actually a new baseline in the setting of the patient having diabetes. I agree with IV fluids started on half-NS at 75 mL/hour. We will check renal ultrasound for any evidence of hydronephrosis. 2. Hyperkalemia, relatively mild in the setting of the patient having taken NSAID yesterday while also being on small dose of PATY inhibitor and possible element of volume depletion. Should resolve with IV fluids. We will hold lisinopril for now. 3. Urinary retention. The patient has a history of diabetic neuropathy, possibly has element of neurogenic bladder. We will check bladder ultrasound with postvoid residual volume measurement to look for retention. 4. Urinary tract infection with suggestive urinalysis. The patient given one dose of ceftriaxone last night. We will follow up urine culture. Thank you for this referral. We will be following up closely. Jhoan Graff MD
[2017-09-02] MEDS: Oxycodone/Acetaminophen 5/325 mg Tab PO PRN (03:28)
[2017-09-02] MEDS: Sodium Chloride 0.45% 1,000 ML IV SCH (03:31)
[2017-09-02] MEDS: Insulin Lispro (humaLOG) LOW Coverage SC SCH ×2 (07:31→11:03)
[2017-09-02 08:05] LABS: BLOOD UREA NITROGEN 24 mg/dL (7-21); CALCIUM 9.5 mg/dL (8.4-10.5); GFR AFRICAN-AMERICAN > 60; GFR NON-AFRICAN AMERICAN 56
[2017-09-02] MEDS: Albuterol-Ipratrop 3 mg / 0.5 (3 ml) UD IH SCH ×2 (08:11→11:38)
--- NOTE | 2017-09-02 08:46 | CON ---
DATE: 09/01/2017 LOCATION: The patient is seen earlier today in room 366, bed 1. CHIEF COMPLAINT: Weakness, generalized aches and pains x1 day duration. HISTORY OF PRESENT ILLNESS: A 61-year-old female with asthma, chronic obstructive lung disease, hypertension, chronic back pain, obstructive sleep apnea and diabetes mellitus, anxiety, depression, hyperlipidemia, who was admitted to the [facility] complaining of dizziness and weakness and urinary retention. She denies any dysuria and no fevers and no chills. No new back pain. PAST MEDICAL HISTORY: Significant for chronic back pain, chronic obstructive lung disease, hypertension, asthma, obstructive sleep apnea, diabetes, hyperlipidemia, anxiety. The patient also has morbid obesity with a BMI of 41. PAST SURGICAL HISTORY: Significant for tubal ligation, cholecystectomy. ALLERGIES: THE PATIENT HAS NO KNOWN ALLERGIES. MEDICATIONS AT HOME: Reveals the patient to be on Zocor, diazepam, Pepcid, Synthroid, lisinopril, omega, oxycodone and atenolol. PHYSICAL EXAMINATION GENERAL: The patient is in bed, in no acute distress, nontoxic. VITAL SIGNS: Temperature of 97, blood pressure is 156/70, respiratory rate of 20 and heart rate of 76. HEENT: Unremarkable. NECK: Supple. LUNGS: Have decreased breath sounds. HEART: Normal S1, S2. ABDOMEN: Soft, nontender. LABORATORY DATA: Reveals a white count is 8000, hemoglobin of 11 and platelets of 278, and chemistries reveals a BUN of 27, creatinine of 1.3. Urinalysis is noted and serology for influenza is negative and the urinalysis reveals 10-15 wbc's with moderate bacteria. ASSESSMENT AND PLAN: This is a 61-year-old with asthma, chronic obstructive pulmonary disease, hypertension, chronic back pain, obstructive sleep apnea, diabetes, hyperlipidemia, anxiety, morbid obesity with body mass index of 41, presenting with urinary retention. The patient is doing better now. The patient's chest x-ray is reported to be negative. the emergency room chart states the patient has pneumonia. We will order ceftriaxone, procalcitonin, blood culture, urine culture and we will make further recommendations upon availability of initial results. We will also order an HIV test because of her age. We will follow with you. Matias Hi MD [facility] # [id number]
[2017-09-02 09:50] LABS: ALB/GLOB RATIO 1.5 (1.1-1.8); ALBUMIN 4.1 g/dL (3.0-4.8); BILIRUBIN,DIRECT 0.3 mg/dL (0.0-0.4)
[2017-09-02 10:11] VITALS: BP 123/56; PULSE 82
[2017-09-02] MEDS: Pantoprazole 40 mg EC Tab PO SCH (10:29)
[2017-09-02] MEDS: Omega-3-Acid Ethyl Esters 1 GM Cap PO SCH (10:29)
[2017-09-02] MEDS: cefTRIAXone 1 gm 1 GM/100 ML BAG IVPB SCH (10:29)
[2017-09-02] MEDS: oxyCODONE 80 mg ER Tab (oxyCONTIN) PO SCH (10:30)
[2017-09-02] MEDS: Fluticasone Nasal 50 mcg/Spray NS SCH (10:32)
[2017-09-02] MEDS: Levothyroxine 112 MCG TAB PO SCH (10:35)
[2017-09-02 11:24] VITALS: TEMP 98.9; O2SAT 96
[2017-09-02 16:18] LABS: HEPATITIS B SURFACE AG Negative (NEGATIVE)
[2017-09-02 16:23] LABS: HEPATITIS A IGM NEGATIVE (NEGATIVE); HEPATITIS B CORE AB NEGATIVE (NEGATIVE)
[2017-09-02 16:35] LABS: HEPATITIS C ANTIBODY NEGATIVE (NEGATIVE)
--- NOTE | 2017-09-02 21:04 | HP ---
DATE: 09/01/2017 The patient came in with vomiting and back pain. HISTORY OF PRESENT ILLNESS: This is a 61-year-old female with diabetes type 2, on insulin; chronic back pain; morbid obesity; COPD; hypothyroidism came in to the emergency room with vomiting, abdominal discomfort, back pain and felt dizzy and she could not pass her urine. No other complaints. No chest pain. No short of breath. No fever. PAST MEDICAL HISTORY: As I mentioned, chronic back pain, multiple disk problems, diabetes type 2, hyperthyroidism, thyroidectomy, cholecystectomy, tubal ligations, colonoscopies, hypertension, hypercholesterolemia, COPD. ALLERGIES: SHE HAS NO KNOWN ALLERGIES. SOCIAL HISTORY: She quit smoking a few years ago. No alcohol. No street substance abuse. REVIEW OF SYSTEMS: As in the present illness, she does have chronic back pain, she does have chronic arthritis, constipation, dyspnea, on and off wheezing, incontinence occasionally, otherwise negative rest of the review of systems. PHYSICAL EXAMINATION: VITAL SIGNS: Temperature is 98.1, heart rate 85, blood pressure 157/68, respirations 20 and saturations 98% on room air. HEAD AND NECK: Normal. No JVD. No thyromegaly. CHEST: Clear. Good air entry. CARDIAC: First sound and second sound normal. ABDOMEN: Obese and nontender. EXTREMITIES: No edema. NEUROLOGIC: Normal. LABORATORY STUDIES: Shows the following: White count 8, hemoglobin 11.9, hematocrit 36.8, platelets 278. Her chemistry is noted for sodium 144, potassium 5.5, chloride 107, bicarbonate 26, BUN 27, creatinine 1.3, phosphorus 5, magnesium 1.5. AST is 152, ALT is 119. Also, urinalysis shows 10 to 15 white blood cells with moderate bacteria. The patient has serology for influenza type A and B and was negative. HIV also was done and was negative. IMPRESSION AND PLAN: A 61-year-old female came in with urinary retention, vomiting, found to have urinary tract infection with acute renal insufficiency, probably dehydrations. We will start the patient on IV fluids, put the patient on Rocephin IV. Urine cultures, repeat chemistry in the morning. Ultrasound of bladder and kidneys. We will follow up with Infectious Disease and Nephrology consultations. For her liver function test, we will repeat the liver function test as outpatient. We will send for hepatitis and we will follow up on and repeat it in the morning. We will hold off on any cholesterol medications and will follow up on the liver ultrasound. Roel Ortiz MD
--- NOTE | 2017-09-03 00:31 | PN ---
DATE: SUBJECTIVE: Patient is seen in bed, was seen earlier this morning in room 366, bed 1. PHYSICAL EXAMINATION VITAL SIGNS: Temperature is 99, blood pressure is 120/50, respiratory rate of 18. HEENT: Unremarkable. NECK: Supple. LUNGS: Have decreased breath sounds. HEART: Normal S1 and S2. ABDOMEN: Soft. LABORATORY DATA: Reveals a white count of 8000, hemoglobin of 11, platelets of 278. BUN of 24, creatinine of 1.0, and procalcitonin is less than 0.05. Urinalysis is noted, and serology is reviewed. Microbiology is noted and blood culture is negative. Urine cultures are coag-negative staph. ASSESSMENT AND PLAN: A 61-year-old female, who was seen earlier this morning with history of asthma, chronic obstructive lung disease, hypertension, chronic back pain, obstructive sleep apnea, hyperlipidemia, anxiety, morbid obesity with a BMI of 41 with urinary retention, and doing better, with coagulase-negative staphylococci in the urine and with a urinalysis that is not significant. We will follow with you. Matias Hi MD
--- NOTE | 2017-09-03 16:05 | DS ---
HISTORY OF PRESENT ILLNESS: The patient is feeling better. No vomiting. Eating well. She is sitting on the bed. Seen by assembler caterpillar spider. She got Rocephin. She has no other complaints. PHYSICAL EXAMINATION: VITAL SIGNS: On discharge date, temperature 98.9, heart rate 75, blood pressure 126/54, respirations 18, and saturation 96%. HEAD AND NECK: Normal. No JVD. No thyromegaly. CHEST: Clear. Good air entry. CARDIAC: First and second sound normal. ABDOMEN: Soft, obese, and nontender. EXTREMITIES: No edema. NEUROLOGIC: Normal. LABORATORY STUDIES: Sodium 143, potassium 4.8, chloride 104, bicarbonate 24, BUN 24, creatinine 1, blood sugar 110, sugar 94, and calcium 9.5. Repeat liver function test came back AST 45, ALT is 81. The patient is clinically stable. She also had acute hepatitis profile came back negative, HIV came back negative. Influenza type A and B are negative. The patient also had renal and bladder ultrasound, which was normal, just small renal cyst, otherwise negative. Chest x-ray, no active disease. The patient will be discharged home to be followed as outpatient. She also had microbiology, which shows the blood culture is negative, urine culture shows coagulase-negative Staph aureus . The patient otherwise is stable, no symptoms. DISCHARGE DIAGNOSES: 1. Acute urinary tract infections. We will discharge the patient on p.o. Levaquin for a week. 2. Acute renal insufficiency, probably prerenal. We will discontinue losartan. Continue IV fluid and follow up clinically. 3. Chronic back pain, continue pain medications. 4. Chronic anxiety, continue Valium. 5. Hypothyroidism, continue Synthroid. 6. Diabetes, continue insulin as prescribed before. The patient should follow up in the office. 7. Hypertension. She is taking Tenormin 50 mg. Continue current therapy. 8. Chronic obstructive pulmonary disease. Continue nebulizer treatment. The patient's prescription was given to the patient. Advised not to take any losartan or any PATY inhibitor, Prinivil or lisinopril, stop it completely because of hyperkalemia and renal insufficiency. The patient also advised to follow up in the office within a week. Continue metformin only with the insulin. The patient advised not to take the Prandin for her diabetes. See in the office within a week. Roel Ortiz MD [facility] # [id number]
--- NOTE | 2017-09-05 09:38 | CARD ---
APPROVED REPORT EKG Measurement Heart [id number] <Conclusion> Normal sinus rhythm Left axis deviation PRWP No change
== END 2017-09-02 15:27 | disposition home or self-care (01) ==
LOC: ED 19:37 → ERH 23:28 → 3RNO 09-01 01:41
PROVIDERS: ADMIT Internal Medicine; ATTEND Internal Medicine
DX: J18.9 Pneumonia, unspecified organism (principal); E03.9 Hypothyroidism, unspecified; E11.40 Type 2 diabetes mellitus with diabetic neuropathy, unspecified; E66.01 Morbid (severe) obesity due to excess calories; E78.00 Pure hypercholesterolemia, unspecified; E78.5 Hyperlipidemia, unspecified; E87.5 Hyperkalemia; F32.89 Other specified depressive episodes; F41.9 Anxiety disorder, unspecified; G47.33 Obstructive sleep apnea (adult) (pediatric); G89.29 Other chronic pain; H40.9 Unspecified glaucoma; I10 Essential (primary) hypertension; J44.0 Chronic obstructive pulmonary disease with (acute) lower respiratory infection; N17.9 Acute kidney failure, unspecified; N39.0 Urinary tract infection, site not specified; Z68.41 Body mass index [BMI] 40.0-44.9, adult; Z79.4 Long term (current) use of insulin; Z87.891 Personal history of nicotine dependence; R40.2412 Glasgow coma scale score 13-15, at arrival to emergency department; Z90.49 Acquired absence of other specified parts of digestive tract; E86.0 Dehydration; Z98.51 Tubal ligation status
CPT/HCPCS: 36415; 71045; 76770; 76857; 80048; 80053; 80074; 80076; 81001; 82043; 82550; 82570; 82803; 82948; 83690; 83735; 84100; 84133; 84145; 84156; 84300; 84484; 85025; 87040; 87086; 87389; 87804; 93005; 94640; 94760; 96365; 96366; 96367; 96375; 99285; G0378; J0456; J0610; J0696; J2270; J7030; J7040

== ENCOUNTER 2018-06-02 16:08 | Emergency (ER) | payer MEDICAID, OTHER ==
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
[2018-06-02 16:36] VITALS: O2SAT 100; BMI 46.3
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
--- NOTE | 2018-06-02 17:43 | RAD ---
PROCEDURE: Radiographs of the right humerus. HISTORY: arm pain s/p trauma COMPARISON: None. FINDINGS: BONES: Bone alignment is normal. There is no acute displaced fracture or bone destruction. There is mild diffuse bone demineralization. SOFT TISSUES: There are periarticular soft tissue calcifications which may represent calcific tendinitis. OTHER FINDINGS: None. IMPRESSION: No acute fracture or dislocation.
--- NOTE | 2018-06-02 17:43 | RAD ---
Date of service: 06/02/2018 PROCEDURE: Radiographs of the Right Shoulder HISTORY: shoudler pain s/p trauma COMPARISON: No prior. FINDINGS: BONES: There is diffuse bone demineralization. No acute displaced fracture or bone destruction. Bone alignment is normal. JOINTS: There is mild degenerative osteoarthrosis in the glenohumeral and acromioclavicular joints. SOFT TISSUES: Normal. OTHER FINDINGS: None. IMPRESSION: No acute fracture or dislocation.
[2018-06-02 18:03] VITALS: BP 147/78; PULSE 69; RESP 18
== END 2018-06-02 18:00 | disposition home or self-care (01) ==
LOC: ED 16:08
DX: M79.601 Pain in right arm (principal); I10 Essential (primary) hypertension; Z87.891 Personal history of nicotine dependence